=== PATIENT | female | born 1935 | race Caucasian/White ===

== ENCOUNTER 2018-03-02 04:21 | Inpatient (IN) | payer OTHER ==
[~2018-03-02] VITALS: Ht 162.6 cm; Wt 60.3 kg
[~2018-03-02 04:21] MED LIST: AMLODIPINE BESYL5 M1 PO; CRESTOR10 M1 PO; LEVOTHYROXINE75 MCG PO; LISINOPRIL20 M1 PO; VITAMIN D1000 UNIT PO
[2018-03-02] MEDS ORDERED: MIRALAX17 G1 PO ×2 (09:43→11:30)
[2018-03-02] MEDS ORDERED: DILAUDID2 M1 PO ×2 (09:43→11:30)
[2018-03-02] MEDS ORDERED: ASPIRIN EC81 M1 PO (09:43)
[2018-03-02] MEDS ORDERED: COLACE100 M1 PO ×2 (09:43→11:30)
--- NOTE | 2018-03-02 09:46 | Patient Discharge Instructions ---
Discharge Instructions General Discharge Information You were seen/treated for: Right hip osteoarthritis You had these procedures: Right total hip arthroplasty Watch for these problems: Fever over 100.4 Drainage from wound Redness and swelling around wound Unable to bear weight on right lower extremity Chest pain or shortness of breath Call Surgeon to remove: Other Do not soak the wound: Yes No bath, but you may shower: Yes Other wound care: Daily dry dressing change Special Instructions: Okay to shower in 48 hours. Keep wound clean and dry Diet Continue normal diet: Yes Activity Activity Limited to: Weight bear as tolerated (with rolling walker) Acute Coronary Syndrome Inclusion Criteria At DC or during hospital stay patient has or had the following: ACS DIAGNOSIS No Discharge Core Measures Meds if any: Prescribed or Continued at Discharge Meds if any: NOT Prescribed or Continued at Discharge Congestive Heart Failure Inclusion Criteria At DC or during hospital stay patient has or had the following: CHF DIAGNOSIS No Discharge Core Measures Meds if any: Prescribed or Continued at Discharge Meds if any: NOT Prescribed or Continued at Discharge Cerebrovascular accident Inclusion Criteria At DC or during hospital stay patient has or had the following: CVA/TIA Diagnosis No Discharge Core Measures Meds if any: Prescribed or Continued at Discharge Meds if any: NOT Prescribed or Continued at Discharge Venous thromboembolism Inclusion Criteria VTE Diagnosis No VTE Type NONE VTE Confirmed by (Test) NONE Discharge Core Measures - Per Current guidelines, there needs to be overlap - treatment for the first 5 days of Warfarin therapy. - If discharged on Warfarin prior to 5 days of - overlap therapy, the patient will need to be - assessed for post discharge needs including - *Post discharge parental anticoagulation - *Warfarin and/or parental anticoagulation education - *Follow up date to check INR post discharge At least 5 days overlap therapy as Inpatient No Meds if any: Prescribed or Continued at Discharge Note: Overlap Therapy is Warfarin and Anticoagulant Meds if any: NOT Prescribed or Continued at Discharge
--- NOTE | 2018-03-02 09:48 | Admission Core Measures ---
Acute Coronary Syndrome (CM) ACS Core Measures Acute Coronary Syndrome Diagnosis No Congestive Heart Failure (NEW) CHF Core Measures Congestive Heart Failure Diagnosis No Cerebrovascular Accident CVA Core Measures CVA/TIA Diagnosis No Venous Thromboembolism VTE Core Bk (View Protocol) VTE Risk Factors Surgery No Mechanical VTE Prophylaxis d/t N/A MechProphylax Ordered No VTE Pharm Prophylaxis d/t NA PharmProphylax ordered Problem List As ranked by this Provider includes Assessment & Plan 1. Unilateral primary osteoarthritis, right hip HOME MEDS Home Med List Amlodipine Besylate 5 MG TABLET 1 TAB PO DAILY HTN (Reported) Aspirin (Ecotrin*) 81 MG TABLET.DR 1 TAB PO BID DVT PPX Cholecalciferol (Vitamin D3) (Vitamin D) 1,000 UNIT TABLET 1 TAB PO DAILY SUPPLEMENT (Reported) Docusate Sodium (Colace) 100 MG CAPSULE 1 CAP PO BID STOOL SOFTENER Hydromorphone HCl (Dilaudid) 2 MG TABLET 1-2 TAB PO Q4-6 PRN PRN PAIN Levothyroxine Sodium 75 MCG TABLET 1 TAB PO DAILY replacement (Reported) Lisinopril 20 MG TABLET 1 TAB PO DAILY HTN (Reported) Polyethylene Glycol 3350 (Miralax) 17 GRAM POWD.PACK 1 PAC PO DAILY CONSTIPATION Rosuvastatin Calcium (Crestor) 10 MG TABLET 1 TAB PO DAILY CHOLESTEROL ( Reported)
--- NOTE | 2018-03-02 09:49 | Surg Short-stay <48hrs Dis Sum ---
Visit Information Visit Dates Admission Date: 03/02/18 Discharge Date: 03/04/18 Surgical Short Stay DC Summary Admission Diagnosis: Right hip osteoarthritis Final Diagnosis: Same Procedure(s): Right total hip arthroplasty Summary/Significant Findings: Patient tolerated procedure well. Postoperatively, she was tolerating a regular diet, voiding spontaneously, pain was well managed, and she was ambulating with physical therapy using a rolling walker and was cleared for discharge. Condition at Discharge: Good Discharge Disposition: home health services Discharge instructions provided to patient/family: Yes Post discharge follow-up plan: Patient is to follow-up with Dr. Fleming in 6 weeks. Call sooner with any questions or concerns
--- NOTE | 2018-03-02 15:34 | Operative Report ---
Operative/Inv Procedure Report Surgery Date: 03/02/18 Name of Procedure: Right total hip replacement Pre-Operative Diagnosis: Primary right hip DJD Post-Operative Diagnosis: Same Estimated Blood Loss: 350 Surgeon/Emergency Medical Services Coordinator: Bernadette GUADALUPE,Kevin Weller Anesthesia: block Operative/Procedure Note Note: Description of Procedure: The patient was taken to the operating room and positively identified. After induction of spinal anesthesia and administration of appropriate pre-operative antibiotics, the patient was positioned supine on the operating room table and all bony prominences were well padded. After performing a surgical timeout, the right lower extremity was prepped and draped in the usual sterile fashion. A direct anterior approach was made to the right hip. The incision was carried sharply through superficial soft tissues to the level of the fascia. Meticulous hemostasis was maintained with Bovie electocautery. The fascia over the tensor fascia catalina muscle was opened sharply and the interval between the TFL and the sartorius was entered bluntly taking care to stay lateral to the lateral femoral cutaneous nerve. Retractors were placed around the femoral neck and the pericapsular fat was identified. The ascending branches of the lateral femoral circumflex vessels were identified and carefully coagulated. The pericapsular fat and anterior capsule were then resected. A napkin ring osteotomy was performed and the femoral head was removed without difficulty. Attention was then turned to the acetabulum. After appropriate placement of retractors, the acetabulum was exposed. It was noted that the superior lateral aspect of the acetabulum was quite deficient. Soft tissue was cleaned from the acetabular margin and notch. Overhanging osteophytes were removed and the teardrop was exposed. The acetabulum was then sequentially reamed to accept a 54 mm [place] Trident Tritanium hemispherical shell. This was impacted into place in the appropriate position and multiple screws were used for supplemental fixation. It was then fit with a 36 mm Trident X3 zero degree eccentric polyethylene insert. Attention was then turned to the femur. After performing the appropriate ligament releases, the proximal femur was exposed. It was then sequentially broached to accept a size 5 Ursula Accolade 2 stem. This was trialed for leg length and stability. The trial component was removed and the final component was impacted into place. The trunnion was carefully cleaned and fit with a 36 mm, +0 Biolox delta ceramic femoral head. The hip was reduced and put through a full range of motion and found to be stable. The articular space was then irrigated with sterile saline. The periarticular soft tissues were infilitrated with Marcaine. The fascial layer was closed with interrupted #1 vicryl suture and the skin was re-approximated with interrupted 2 -0 vicryl. The skin was closed with a running 3-0 V-Lock suture. Steri-strips and a sterile dressing were applied. The patient was awakened and taken to the recovery room in satisfactory condition.
--- NOTE | 2018-03-02 15:42 | RADIOLOGY REPORT ---
EXAMINATION: XR HIP, RIGHT CLINICAL INFORMATION: Right total hip replacement COMPARISON: None TECHNIQUE: AP and crosstable lateral views of the right hip FINDINGS: There is a right total hip arthroplasty with the components in usual position. No periprosthetic fracture or suspicious area of lucency. There is a drain\E\tubing overlying the right hip region. There is some air\E\gas in the soft tissues compatible with postoperative change. IMPRESSION: Expected postop changes status post right total hip arthroplasty
--- NOTE | 2018-03-02 16:20 | PN- Orthopedic ---
Subjective Subjective: POC pt recovering in PACU, complains of nausea, denies vomiting, has gotten 2 different antiemetic medications. some moderate pain in right hip. denies paresthesias Denies cp/sob. due to void. has not ambulated yet Objective Vital Signs and I&Os VSS, afebrile Physical Exam: gen- NAD resp- clear cardiac- RRR abd- ND, soft, NT ext- right hip dressing with sang drainage at inferior half of dressing around drain site. hemovac emptied in PACU with 25cc sanguinous drainage. Thigh is soft, nontender. Distal sensory and motor function intact. 2+ DP pulse Current Medications: Current Medications Sig/Jay Start time Last Medication Dose Route Stop Time Status Admin Acetaminophen 975 MG ONCE 03/02 0000 NR PO 03/02 235 Amlodipine Besylate 5 MG DAILY 03/03 0900 AC PO Atorvastatin Calcium 40 MG 1700 03/02 1700 AC PO Cefazolin Sodium 2,000 MG ONCE 03/02 0000 NR IV 03/02 235 Hydromorphone HCl 0 .STK-MED ONE 03/02 1602 DC .ROUTE Levothyroxine Sodium 0.075 MG DAILY AC 03/03 0700 AC PO Lisinopril 20 MG DAILY 03/03 0900 AC PO Metoclopramide HCl 0 .STK-MED ONE 03/02 1513 DC .ROUTE Midazolam HCl 0 .STK-MED ONE 03/02 1153 DC .ROUTE Ondansetron HCl 0 .STK-MED ONE 03/02 1458 DC .ROUTE Oxycodone HCl 0 .STK-MED ONE 03/02 1132 DC PO Oxycodone HCl 10 MG ONCE 03/02 0000 NR PO 03/02 2359 Tranexamic Acid 0 .STK-MED ONE 03/02 1153 DC IV Assessment/Plan Assessment/Plan 82-year-old female with history of hypertension, hyperlipidemia and hypothyroidism now here status post right total hip arthroplasty postop day 0. Patient is stable recovering in PACU with complaint of nausea. Has received Zofran and Reglan in PACU Pain managementtry to limit narcotics due to nausea Antiemetics as needed Physical therapyweightbearing as tolerated with rolling walker DVT prophylaxisalps and aspirin 81 mg twice daily 24 hour perioperative antibiotics- Cefazolin Regular home meds Follow-up a.m. labs Regular diet-IV fluids overnight for hydration Dressing change postop day 2 DC planningpossibly home tomorrow pending clearance by PT Core Measures Venous Thromboembolism VTE Risk Factors Surgery No Mechanical VTE Prophylaxis d/t N/A MechProphylax Ordered No VTE Pharm Prophylaxis d/t NA PharmProphylax ordered
[2018-03-02 17:19] VITALS: BP 140/78
[2018-03-02 21:07] VITALS: BP 150/80
[2018-03-03 01:10] VITALS: BP 124/62
[2018-03-03 04:59] VITALS: BP 118/60
[2018-03-03 09:00] VITALS: BP 120/68
--- NOTE | 2018-03-03 09:24 | PN- Orthopedic ---
Subjective Subjective: POD#1 S/P RIGHT RAMON RESTING COMFORTABLY NO MAJOR ISSUES OVERNIGHT DENEIS CP, SOB, NO N+V WITH DIET Objective Vital Signs and I&Os Vital Signs Date Time Temp Pulse Resp B/P B/P Pulse O2 O2 Flow FiO2 Mean Ox Delivery Rate 03/03 0805 74 118/60 / 0804 74 118/60 03/03 0459 99.2 74 20 118/60 98 Room Air 03/03 0110 97.7 68 20 124/62 98 Room Air 03/02 2107 97.4 69 18 150/80 100 Room Air 03/02 1748 Room Air 03/02 1719 74 18 140/78 99 Intake & Output 03/03 1600 03/03 0800 03/03 0000 03/02 1600 03/02 0800 03/02 0000 Intake Total 720 345 Output Total 500 870 Balance 220 -525 Intake, IV 600 225 Intake, Oral 120 120 Output, 120 Drainage Output, Urine 500 750 Patient 133 lb 128 lb Weight Physical Exam: CV: RRR LUNGS: CLEAR ABD; SOFT, +BS EXT: THIGH SOFT DRSG DRY DISTAL CMS INTACT Assessment/Plan Assessment/Plan ORHTO STABLE PLAN OOB WITH PT HOME D/C PLANNING Core Measures Venous Thromboembolism VTE Risk Factors Surgery No Mechanical VTE Prophylaxis d/t N/A MechProphylax Ordered No VTE Pharm Prophylaxis d/t NA PharmProphylax ordered
[2018-03-03 10:42] LABS: ABSOLUTE BASOPHIL COUNT 0 /CUMM (0.0-0.2); ABSOLUTE EOSINOPHIL COUNT 0 /CUMM (0.0-0.7); ABSOLUTE GRANULOCYTE CT 4.5 /CUMM (1.4-6.5); ABSOLUTE LYMPH COUNT 1.3 /CUMM (1.2-3.4); ABSOLUTE MONOCYTE COUNT 0.4 /CUMM (0.10-0.60); BASOPHIL % 0.3 % (0.0-2.0); EOSINOPHIL % 0.1 % (0-5); GRANULOCYTE % 72.2 % (42.2-75.2); HEMATOCRIT 25.8 % (37-47); MEAN CORPUSCULAR HGB 29.1 PG (27.0-31.0); MEAN CORPUSCULAR HGB CONC 33.4 G/DL (33.0-37.0); MEAN PLATELET VOLUME 8.4 FL (7.4-10.4); PLATELET COUNT 178 /CUMM (130-400); RBC DISTRIBUTION WIDTH 14.4 % (11.5-14.5); RED BLOOD CELL CT 2.96 /CUMM (4.20-5.40); WHITE BLOOD CELL COUNT 6.2 /CUMM (4.8-10.8)
[2018-03-03 14:20] VITALS: BP 120/60
[2018-03-03 18:44] VITALS: BP 118/64
[2018-03-03 18:48] LABS: ABSOLUTE BASOPHIL COUNT 0 /CUMM (0.0-0.2); ABSOLUTE EOSINOPHIL COUNT 0 /CUMM (0.0-0.7); ABSOLUTE MONOCYTE COUNT 0.5 /CUMM (0.10-0.60); EOSINOPHIL % 0 % (0-5); MEAN PLATELET VOLUME 8.4 FL (7.4-10.4); RBC DISTRIBUTION WIDTH 14.3 % (11.5-14.5)
[2018-03-03 18:55] LABS: ABSOLUTE GRANULOCYTE CT 7.3 /CUMM (1.4-6.5); ABSOLUTE LYMPH COUNT 1.1 /CUMM (1.2-3.4); BASOPHIL % 0.4 % (0.0-2.0); HEMATOCRIT 27.8 % (37-47); MEAN CORPUSCULAR HGB 28.8 PG (27.0-31.0); MEAN CORPUSCULAR HGB CONC 33.2 G/DL (33.0-37.0); MEAN CORPUSCULAR VOLUME 86.7 FL (81.0-99.0); PLATELET COUNT 186 /CUMM (130-400); RED BLOOD CELL CT 3.21 /CUMM (4.20-5.40); WHITE BLOOD CELL COUNT 8.9 /CUMM (4.8-10.8)
[2018-03-03 21:32] VITALS: BP 118/60
[2018-03-04 06:38] VITALS: BP 110/70
--- NOTE | 2018-03-04 07:11 | PN- Orthopedic ---
Subjective Subjective: pod#2 s/p right lala no confusion this am awake alert conversive deneis cp, sob, no n+v with diet ambualing well with pt Objective Vital Signs and I&Os Vital Signs Date Time Temp Pulse Resp B/P B/P Pulse O2 O2 Flow FiO2 Mean Ox Delivery Rate 03/04 0638 98.0 83 18 110/70 95 03/03 2132 98.3 81 18 118/60 96 03/03 1844 97.8 82 18 118/64 95 03/03 1420 98.4 87 20 120/60 98 Room Air 03/03 1221 Room Air 03/03 0900 98.0 84 20 120/68 97 Room Air 03/03 0805 74 118/60 03/03 0804 74 118/60 03/03 0800 Room Air Intake & Output 03/04 0800 03/04 0000 03/03 1600 03/03 0800 03/03 0000 03/02 1600 Intake Total 250 720 345 Output Total 750 500 870 Balance 250 -750 220 -525 Intake, IV 10 600 225 Intake, Oral 240 120 120 Output, 120 Drainage Output, Urine 750 500 750 Patient 133 lb 128 lb Weight Physical Exam: cv: rrr lungs: clear abd: soft, +bs ext: drsg changed, wound c/d/i thigh soft, minimal local edema no calf tenderness bilat, distal cms intact Assessment/Plan Assessment/Plan ortho stable plan cont current regime home d/c later today Core Measures Venous Thromboembolism VTE Risk Factors Surgery No Mechanical VTE Prophylaxis d/t N/A MechProphylax Ordered No VTE Pharm Prophylaxis d/t NA PharmProphylax ordered
[2018-03-04 08:53] LABS: ABSOLUTE BASOPHIL COUNT 0 /CUMM (0.0-0.2); ABSOLUTE EOSINOPHIL COUNT 0 /CUMM (0.0-0.7); ABSOLUTE GRANULOCYTE CT 5.4 /CUMM (1.4-6.5); ABSOLUTE LYMPH COUNT 1.4 /CUMM (1.2-3.4); ABSOLUTE MONOCYTE COUNT 0.6 /CUMM (0.10-0.60); BASOPHIL % 0.2 % (0.0-2.0); EOSINOPHIL % 0.1 % (0-5); GRANULOCYTE % 72.5 % (42.2-75.2); MEAN CORPUSCULAR HGB 29.2 PG (27.0-31.0); MEAN CORPUSCULAR HGB CONC 33.5 G/DL (33.0-37.0); MEAN CORPUSCULAR VOLUME 87.2 FL (81.0-99.0); MEAN PLATELET VOLUME 8.5 FL (7.4-10.4); PLATELET COUNT 160 /CUMM (130-400); RBC DISTRIBUTION WIDTH 14.3 % (11.5-14.5); RED BLOOD CELL CT 2.86 /CUMM (4.20-5.40); WHITE BLOOD CELL COUNT 7.4 /CUMM (4.8-10.8)
[2018-03-04 15:29] VITALS: BP 102/60
[2018-03-04 22:05] VITALS: BP 118/56
[2018-03-05 06:08] VITALS: BP 128/60
--- NOTE | 2018-03-05 07:20 | PN- Orthopedic ---
Subjective Subjective: Pt in bed sleeping. NO pain this morning. Tolerating diet. Ambulating with PT. Voiding, denies BM Objective Vital Signs and I&Os Vital Signs Date Time Temp Pulse Resp B/P B/P Pulse O2 O2 Flow FiO2 Mean Ox Delivery Rate 03/05 0608 99.3 79 20 128/60 96 Room Air 03/04 2205 97.8 90 18 118/56 96 03/04 1529 98.6 81 18 102/60 97 03/04 0836 83 110/70 03/04 0836 83 110/70 Intake & Output 03/05 0800 03/05 0000 03/04 1600 03/04 0803/04 0000 03/03 1600 Intake Total 360 760 140 250 Output Total 750 Balance 360 760 140 250 -750 Intake, IV 10 20 10 Intake, Oral 360 750 120 240 Output, Urine 750 Physical Exam: gen- NAD resp- clear cardiac- RRR ext- right thigh soft. dressing cahnged, wound clean and dry, no signs of infection. calves are soft and nontender. 2+ dp pulse. distal sensory and motor function intact Current Medications: Current Medications Sig/Jay Start time Last Medication Dose Route Stop Time Status Admin Acetaminophen 650 MG Q4P PRN 03/03 1500 AC PO Amlodipine Besylate 5 MG DAILY 03/03 09 AC 03/04 PO 0836 Aspirin 81 MG BID 03/02 2100 AC 03/04 PO 202 Atorvastatin Calcium 40 MG 1700 03/03 1700 AC 03/04 PO 1748 Docusate Sodium 100 MG BID 03/02 2100 AC 03/04 PO 2027 Hydromorphone HCl 2 MG Q4P PRN 03/02 1730 AC 03/03 PO 2201 Hydromorphone HCl 4 MG Q4P PRN 03/02 1730 AC 03/04 PO 2031 Ketorolac 15 MG Q6-PRN PRN 03/03 1445 AC 03/04 Tromethamine IV 03/07 1444 1129 Levothyroxine Sodium 0.075 MG DAILY AC 03/03 07 AC 03/05 PO 0544 Lisinopril 20 MG DAILY 03/03 0900 AC 03/04 PO 0836 Ondansetron HCl 4 MG Q6P PRN 03/02 1730 AC 03/02 IV 1738 Polyethylene Glycol 17 GM DAILY 03/03 09 AC 03/04 PO 0836 Results Last 48 Hours of Labs: Laboratory Tests 03/04 03/03 0800 1749 Chemistry Sodium (137 - 145 mmol/L) 137 Potassium (3.5 - 5.1 mmol/L) 3.9 Chloride (98 - 107 mmol/L) 104 Carbon Dioxide (22 - 30 mmol/L) 27 Anion Gap (5 - 16) 6 BUN (7 - 17 mg/dL) 14 Creatinine (0.5 - 1.0 mg/dL) 0.6 Estimated GFR (>60 ml/min) > 60 BUN/Creatinine Ratio (7 - 25 %) 23.3 Hematology CBC w Diff NO MAN DIFF REQ NO MAN DIFF REQ WBC (4.8 - 10.8 /CUMM) 7.4 8.9 RBC (4.20 - 5.40 /CUMM) 2.86 L 3.21 L Hgb (12.0 - 16.0 G/DL) 8.4 L 9.2 L Hct (37 - 47 %) 25.0 L 27.8 L MCV (81.0 - 99.0 FL) 87.2 86.7 MCH (27.0 - 31.0 PG) 29.2 28.8 MCHC (33.0 - 37.0 G/DL) 33.5 33.2 RDW (11.5 - 14.5 %) 14.3 14.3 Plt Count (130 - 400 /CUMM) 160 186 MPV (7.4 - 10.4 FL) 8.5 8.4 Gran % (42.2 - 75.2 %) 72.5 82.0 H Lymphocytes % (20.5 - 51.1 %) 18.7 L 12.2 L Monocytes % (1.7 - 9.3 %) 8.5 5.4 Eosinophils % (0 - 5 %) 0.1 0 Basophils % (0.0 - 2.0 %) 0.2 0.4 Absolute Granulocytes (1.4 - 6.5 /CUMM) 5.4 7.3 H Absolute Lymphocytes (1.2 - 3.4 /CUMM) 1.4 1.1 L Absolute Monocytes (0.10 - 0.60 /CUMM) 0.6 0.5 Absolute Eosinophils (0.0 - 0.7 /CUMM) 0 0 Absolute Basophils (0.0 - 0.2 /CUMM) 0 0 03/03 0807 Chemistry Sodium (137 - 145 mmol/L) 133 L Potassium (3.5 - 5.1 mmol/L) 4.3 Chloride (98 - 107 mmol/L) 99 Carbon Dioxide (22 - 30 mmol/L) 28 Anion Gap (5 - 16) 6 BUN (7 - 17 mg/dL) 12 Creatinine (0.5 - 1.0 mg/dL) 0.7 Estimated GFR (>60 ml/min) > 60 BUN/Creatinine Ratio (7 - 25 %) 17.1 Hematology CBC w Diff NO MAN DIFF REQ WBC (4.8 - 10.8 /CUMM) 6.2 RBC (4.20 - 5.40 /CUMM) 2.96 L Hgb (12.0 - 16.0 G/DL) 8.6 L Hct (37 - 47 %) 25.8 L MCV (81.0 - 99.0 FL) 87.0 MCH (27.0 - 31.0 PG) 29.1 MCHC (33.0 - 37.0 G/DL) 33.4 RDW (11.5 - 14.5 %) 14.4 Plt Count (130 - 400 /CUMM) 178 MPV (7.4 - 10.4 FL) 8.4 Gran % (42.2 - 75.2 %) 72.2 Lymphocytes % (20.5 - 51.1 %) 20.9 Monocytes % (1.7 - 9.3 %) 6.5 Eosinophils % (0 - 5 %) 0.1 Basophils % (0.0 - 2.0 %) 0.3 Absolute Granulocytes (1.4 - 6.5 /CUMM) 4.5 Absolute Lymphocytes (1.2 - 3.4 /CUMM) 1.3 Absolute Monocytes (0.10 - 0.60 /CUMM) 0.4 Absolute Eosinophils (0.0 - 0.7 /CUMM) 0 Absolute Basophils (0.0 - 0.2 /CUMM) 0 Assessment/Plan Assessment/Plan 82-year-old female with history of hypertension, hyperlipidemia and hypothyroidism now here status post right total hip arthroplasty postop day 3. Stable, feels ready to go home today Pain managementtry to limit narcotics due to nausea Physical therapyweightbearing as tolerated with rolling walker DVT prophylaxisalps and aspirin 81 mg twice daily Regular home meds [facility] today with services Core Measures Venous Thromboembolism VTE Risk Factors Surgery No Mechanical VTE Prophylaxis d/t N/A MechProphylax Ordered No VTE Pharm Prophylaxis d/t NA PharmProphylax ordered
[2018-03-05 09:58] VITALS: BP 128/60
== END 2018-03-05 13:45 | disposition home health service (06) | DRG 470 ==
LOC: 2NA 04:21 → SDA 04:21 → CANRESERV 16:19 → ENRESERV 16:19 → ENTRNSPT 16:41 → CMPTRNSPT 17:07 → EDTRNSPTSTS 17:07 → 2NA 17:10 → ENPENDDIS 03-04 07:47 → EDPENDDISDT 03-05 07:50 → EDPENDDISTM 03-05 07:50 → ENTRNSPT 03-05 13:32 → EDTRNSPT 03-05 13:34 → EDTRNSPTSTS 03-05 13:34 → 2NA 03-05 13:45 → CMPTRNSPT 03-05 13:56
PROVIDERS: Physician Assistant; Physician Assistant Surgical
PROC: 0SR904A Replacement of Right Hip Joint with Ceramic on Polyethylene Synthetic Substitute, Uncemented, Open Approach (ICD-10-PCS; principal; 2018-03-02)
DX: M16.11 Unilateral primary osteoarthritis, right hip (principal); E03.9 Hypothyroidism, unspecified; I10 Essential (primary) hypertension; E78.5 Hyperlipidemia, unspecified; K21.9 Gastro-esophageal reflux disease without esophagitis; Z88.0 Allergy status to penicillin
CPT/HCPCS: 2NASP; 36415; 36592; 73502-RT; 82436; 88304; 97110-GO; 97116-GO; 97161-GP; 97530-GO; J0131; J0690; J0735; J2405; J2765; J3490; J7040; J7042